=== PATIENT | female | born 1975 | race Caucasian/White ===

== ENCOUNTER 2020-09-08 08:43 | Outpatient (CLI) | payer BC ==
[2020-09-08] MEDS ORDERED: Magnevist 469MG/ML 20 ML VIAL ONE (09:03)
== END 2020-09-08 08:44 | disposition home or self-care (01) ==
LOC: MRI 08:43
PROVIDERS: ATTEND Nurse Practitioner Acute Care
DX: R51.9 Headache, unspecified (principal)
CPT/HCPCS: 70553